=== PATIENT | male | born 1970 | race Caucasian/White ===

== ENCOUNTER 2016-12-05 17:29 | Emergency (ER) | payer BC ==
--- NOTE | 2016-12-05 17:39 | ED.PDOC ---
History of Present Illness - General Chief Complaint: Upper Extremity Injury Stated Complaint: Shoulder Pain Time Seen by Provider: 12/05/16 17:38 Source: patient, RN notes reviewed, Vital Signs reviewed Additional Information: Patient reports being told about 1 year ago that he had a torn right rotator cuff that would heal on its own within a few months. He had persistent right shoulder pain that was aggravated earlier today when he tried to hold onto the leash of a dog that took off running. It jerked his shoulder and he states he felt a "tearing" sensation in his right shoulder followed by significant pain. Patient lives in [place] and he is visiting [place] for his grandson's birthday alliance party. His was able to come to the ER to drive him since the plan is to give him a muscle relaxer given the finding of muscle spasm on exam. - History of Present Illness Occurred: just prior to arrival Pain - Upper Extremity: moderate: Shoulder, right Method of Injury: other - dog on a leash he was holding onto jerked his shoulder Improving Factors: immobilization Worsening Factors: movement Allergies/Adverse Reactions: Allergies NO KNOWN ALLERGY Allergy (Verified 12/05/16 17:46) Home Medications: Ambulatory Orders Acetamin W/Cod #3 Tab [Tylenol #3 Tab] 1 ea PO TID PRN #10 tab 12/05/16 Diazepam [Valium] 5 mg PO BEDTIME PRN #5 tab 12/05/16 NK [NK] 12/05/16 Review of Systems - Review of Systems Constitutional: States: no symptoms reported EENTM: States: no symptoms reported Respiratory: States: no symptoms reported Cardiology: States: no symptoms reported Gastrointestinal/Abdominal: States: no symptoms reported Genitourinary: States: no symptoms reported Musculoskeletal: States: see HPI Skin: States: no symptoms reported Neurological: States: no symptoms reported Endocrine: States: no symptoms reported Hematologic/Lymphatic: States: no symptoms reported Family Medical History - Family History Grandparents Family History: Unknown Physical Exam - Physical Exam General Appearance: Alert, No apparent distress - at rest. He did grimmace a little and guard his right shoulder with active and passive ROM., Well Developed , Well Groomed, Well Hydrated, Well Nourished Eyes, Ears, Nose, Throat Exam: PERRL/EOMI, normal ENT inspection Neck: full range of motion, supple, other - Right trapezius muscle spasm with mild TTP Cardiovascular/Respiratory: regular rate, rhythm, normal peripheral pulses, no respiratory distress Shoulder Exam: normal inspection, limited ROM - due to pain/spasm, soft tissue tenderness Elbow/Forearm Exam: normal inspection, non-tender, no evidence of injury, normal ROM Wrist Exam: normal inspection, non-tender, no evidence of injury, normal ROM Hand Exam: normal inspection, non-tender, no evidence of injury, normal ROM Neuro/Tendon: normal sensation, normal motor functions Mental Status: alert, oriented x 3 Skin Exam: normal color Progress - Progress Progress: 12/05/16 17:59 Pt with history of old right shoulder injury - Rotator Cuff Tear per report. He tried to grab onto a dog's leash earlier today before dog took off and it jerked his shoulder leading to a "tearing" sensation in his right shoulder causing pain and stiffness. No gross deformity on exam. Myofascial tenderness along with muscle spasm of trapezius. Will treat muscle spasm and pain with NSAIDs, Valium, and T3. X-ray obtained to rule out bony pathology. Patient is to follow-up with PCM in order to request possible PT referral, repeat MRI of right shoulder to compare with previous MRI from about 1 year ago, and consider going back to see Orthopedic Surgeon he saw about a year ago as well. - Results/Orders Results/Orders: RIght Shoulder x-ray: No obvious fracture or dislocation seen by me. Official read pending. Departure - Departure Clinical Impression: Right shoulder pain Qualifiers: Chronicity: acute Qualified Code(s): M25.511 - Pain in right shoulder Time of Disposition: 18:32 Disposition: Discharge to Home or Self Care Condition: Fair Instructions: DI for Shoulder Pain Activity: as per physical therapy - , gentle range of motion exercises Prescriptions: Acetamin W/Cod #3 Tab [Tylenol #3 Tab] 1 ea PO TID PRN #10 tab PRN Reason: Pain Diazepam [Valium] 5 mg PO BEDTIME PRN #5 tab PRN Reason: Muscle Spasms Home Medications: Ambulatory Orders Acetamin W/Cod #3 Tab [Tylenol #3 Tab] 1 ea PO TID PRN #10 tab 12/05/16 Diazepam [Valium] 5 mg PO BEDTIME PRN #5 tab 12/05/16 NK [NK] 12/05/16 Additional Instructions: Follow-up with Primary Care Provider in order to get a referral for Physical Therapy, possible MRI of shoulder ordered, and possibly a renewed referral to Orthopedic Surgery for assessment to see if you need surgery. Sling for comfort. Do gentle range of motion exercises in order to prevent your shoulder from getting stiff.
[2016-12-05] MEDS ORDERED: diazePAM 5 MG TAB PO ONE (17:54)
[2016-12-05] MEDS ORDERED: KETOROLAC TROMETHAMINE INJ 60 MG/2 ML VIAL IM ONE (17:54)
[2016-12-05 17:55] VITALS: BP 136/90; TEMP 98.7; O2SAT 98
--- NOTE | 2016-12-05 18:42 | RAD ---
EXAM DESCRIPTION: Shoulder,Right 2 or More Views CLINICAL HISTORY: 46 years Male rotator cuff tear, acute on chronic, pain COMPARISON: None. TECHNIQUE: RIGHT shoulder two view FINDINGS: No acute fractures or dislocations identified. No osseous destructive lesions. Acromioclavicular joint appears maintained. There is degenerative change at the acromial clavicular joint. No evidence of apical pneumothorax. IMPRESSION: No acute fracture or dislocation identified. There graft degenerative change at the acromioclavicular joint There is mild narrowing of the acromiohumeral distance to 8 mm which may reflect mild shoulder impingement Electronically signed by: Samantha Dumont 12/05/2016 6:41 PM CDT
== END 2016-12-05 18:35 | disposition home or self-care (01) ==
LOC: ER 17:29
DX: M25.511 Pain in right shoulder (principal)
CPT/HCPCS: 73030; J1885